=== PATIENT | female | born 1995 | race Caucasian/White ===

== ENCOUNTER 2022-02-12 05:59 | Inpatient (IN) | payer OTHER ==
--- NOTE | 2022-02-12 10:22 | PR ---
[facility] [address] [place], [place] [address] Signed Progress Notes IP Datetime Report Generated by CPN: 02/12/2022 10:22 PROGRESS NOTES: [id number] Impression: Normal Progression of Labor; Reassuring Heart Rate Procedures: Artificial ROM; Sterile Vag Exam Plan: Continue Present Management VITAL SIGNS: [id number] Vital Signs: Reviewed VS Notable Details: intermittent mild HTN EXAM: [id number] Dilatation: 3.5 Effacement: 90 Station: -2 Contractions: rare MEMBRANES: [id number] Comments: Starting to get uncomfortable. Will continue. Epidural prn. FETUS A: [id number] FHR Baseline: 130 Variability: Moderate 6-25bpm Accelerations: 15X15 Decelerations: None FHR Category: Category I Presentation: Vertex Comments on Fetus A: no evidence of metabolic acidosis FETUS B: [id number] Signing Physician: Hilda Goff MD Copies: ~ *Electronically Signed* 02/12/22 1022 HILDA GOFF MD PATIENT NAME: CHRISTINE LEA PROGRESS NOTE DATE OF : [birth year] PHYSICIAN: HILDA GOFF MD RPT #: [id number] REPORT IS CONFIDENTIAL AND NOT TO BE RELEASED WITHOUT AUTHORIZATION
--- NOTE | 2022-02-12 13:35 | PR ---
[facility] [address] [place], [place] [address] Signed Progress Notes IP Datetime Report Generated by CPN: 02/12/2022 13:35 PROGRESS NOTES: [id number] Impression: Normal Progression of Labor Procedures: Sterile Vag Exam Plan: Continue Present Management VITAL SIGNS: [id number] Vital Signs: Reviewed VS Notable Details: intermittent mild HTN EXAM: [id number] Dilatation: 6.0 Effacement: 90 Station: -1 Contractions: rare MEMBRANES: [id number] Comments: Progressing well. status reassuring currently but has had episodes of decreased variability. Will continue close observation. FETUS A: [id number] FHR Baseline: 130 Variability: Moderate 6-25bpm Accelerations: 15X15 Decelerations: None FHR Category: Category I Presentation: Vertex Comments on Fetus A: no evidence of metabolic acidosis FETUS B: [id number] Signing Physician: Hilda Goff MD Copies: ~ *Electronically Signed* 02/12/22 1335 HILDA GOFF MD PATIENT NAME: CHRISTINE LEA PROGRESS NOTE DATE OF : [birth year] PHYSICIAN: HILDA GOFF MD RPT #: [id number] REPORT IS CONFIDENTIAL AND NOT TO BE RELEASED WITHOUT AUTHORIZATION
--- NOTE | 2022-02-12 14:10 | PR ---
[facility] [address] [facility] [place], [place] [address] Signed Progress Notes IP Datetime Report Generated by CPN: 02/12/2022 14:10 PROGRESS NOTES: [id number] Impression: Normal Progression of Labor Procedures: Intrauterine Pressure Catheter; Scalp Electrode Plan: Continue Present Management Other Plans: close observation, position changes VITAL SIGNS: [id number] Vital Signs: Reviewed VS Notable Details: intermittent mild HTN EXAM: [id number] Dilatation: 8.0 Effacement: 90 Station: -1 Contractions: rare MEMBRANES: [id number] Comments: Progressing. Overall reassuring but will continue close observation. FETUS A: [id number] FHR Baseline: 130 Variability: Moderate 6-25bpm Accelerations: 15X15 Decelerations: None FHR Category: Category I Presentation: Vertex Comments on Fetus A: no evidence of metabolic acidosis FETUS B: [id number] Signing Physician: Hilda Goff MD Copies: ~ *Electronically Signed* 02/12/22 1410 HILDA GOFF MD PATIENT NAME: CHRISTINE LEA PROGRESS NOTE DATE OF : [birth year] PHYSICIAN: HILDA GOFF MD RPT #: [id number] REPORT IS CONFIDENTIAL AND NOT TO BE RELEASED WITHOUT AUTHORIZATION
--- NOTE | 2022-02-13 12:14 | PR ---
[facility] [address] [facility] [place], [place] [address] Signed PP Progress Notes Datetime Report Generated by CPN: 02/13/2022 12:14 SUBJECTIVE: [id number] Pain: Within Normal Limits Vital Signs: [id number] Vital Signs: Reviewed; Within Normal Limits EXAM: Ongoing Cardiovascular: Not Done Abdomen/Uterus: Abnormal Lochia: Normal Vulva/Perineum: Not Done Breasts: Not Done CVA Tenderness: Not Done Extremities: Normal Progress: Normal Exam Comments: Fundus firm, NT @ U-1. H/H 11.8/35.8, WBC 10.4, plat 181k IMPRESSION/PLAN/PROCEDURES: [id number] Impression: Normal Progression Plan: Continue Present Management Progress Notes: Doing well. Will continue present management with probable discharge in am. Signing Physician: Hilda Goff MD Copies: ~ *Electronically Signed* 02/13/22 1214 HILDA GOFF MD PATIENT NAME: CHRISTINE LEA PROGRESS NOTE DATE OF : [birth year] PHYSICIAN: HILDA GOFF MD RPT #: [id number] REPORT IS CONFIDENTIAL AND NOT TO BE RELEASED WITHOUT AUTHORIZATION
--- NOTE | 2022-02-14 09:12 | PR ---
[facility] [address] [facility] [place], [place] [address] Signed PP Progress Notes Datetime Report Generated by CPN: 02/14/2022 09:12 SUBJECTIVE: [id number] Pain: Within Normal Limits Vital Signs: [id number] Vital Signs: Reviewed; Within Normal Limits EXAM: Ongoing Cardiovascular: Not Done Respiratory: Not Done Abdomen/Uterus: Abnormal Lochia: Normal Vulva/Perineum: Not Done Breasts: Not Done CVA Tenderness: Not Done Extremities: Normal Incision: Not Applicable Progress: Normal Exam Comments: Fundus firm, NT @ U-1. IMPRESSION/PLAN/PROCEDURES: [id number] Impression: Normal Progression Plan: Discharge Procedures: None Progress Notes: Doing well. She is ready for D/C. Signing Physician: Hilda Goff MD Copies: ~ *Electronically Signed* 02/14/22911 HILDA GOFF MD PATIENT NAME: CHRISTINE LEA PROGRESS NOTE DATE OF : [birth year] PHYSICIAN: HILDA GOFF MD RPT #: [id number] REPORT IS CONFIDENTIAL AND NOT TO BE RELEASED WITHOUT AUTHORIZATION
== END 2022-02-14 13:05 | disposition home or self-care (01) | DRG 807 ==
LOC: FBC 05:59
PROVIDERS: ADMIT Obstetrics & Gynecology; ATTEND Obstetrics & Gynecology
PROC: 10E0XZZ Delivery of Products of Conception, External Approach (ICD-10-PCS; principal; 2022-02-12)
PROC: 0KQM0ZZ Repair Perineum Muscle, Open Approach (ICD-10-PCS; 2022-02-12)
PROC: 10907ZC Drainage of Amniotic Fluid, Therapeutic from Products of Conception, Via Natural or Artificial Opening (ICD-10-PCS; 2022-02-12)
PROC: 3E0P7VZ Introduction of Hormone into Female Reproductive, Via Natural or Artificial Opening (ICD-10-PCS; 2022-02-12)
PROC: 00HU33Z Insertion of Infusion Device into Spinal Canal, Percutaneous Approach (ICD-10-PCS; 2022-02-12)
PROC: 3E0R3BZ Introduction of Anesthetic Agent into Spinal Canal, Percutaneous Approach (ICD-10-PCS; 2022-02-12)
DX: O13.4 Gestational [pregnancy-induced] hypertension without significant proteinuria, complicating childbirth (principal); Z37.0 Single live birth; O70.1 Second degree perineal laceration during delivery; Z67.40 Type O blood, Rh positive; Z3A.39 39 weeks gestation of pregnancy; Z87.891 Personal history of nicotine dependence; O99.214 Obesity complicating childbirth; Z20.822 Contact with and (suspected) exposure to COVID-19
CPT/HCPCS: 36415; 85027; A9270; J2590; J2795; J3010